=== PATIENT | female | born 1985 | race Caucasian/White ===

== ENCOUNTER 2023-11-27 01:03 | Day surgery (SDC) | payer OTHER, SELFPAY ==
[2023-11-15 10:29] VITALS: BMI 47.2
--- NOTE | 2023-11-15 10:38 | PC.NURSE ---
Report to the Outpatient Waiting Room, entrance under the green pavilion located off [facility], at time 08:00am on date 11-27-23. Planned Procedure Time: 10:00am. Time changes happen often and if your time is changed the preop area will call you the afternoon before. - You and your visitor will be asked to self-screen and do not enter if you have any COVID symptoms. - A mask is optional within the hospital at this time. Patients may have clear liquids (water, carbonated beverages, clear teas, apple juice) until 3 hours prior to surgery (07:00AM) with a maximum of 20 ounces. - No food from midnight until time of surgery Take the following medications with a SIP of water the morning of surgery: N/A DO NOT STOP ANY OF YOUR OTHER PRESCRIPTION MEDICATIONS PRIOR TO SURGERY ?EXCEPT THE FOLLOWING Medications to discontinue per physician N/A Please no make-up, nail german, hairspray, perfume, deodorant, or body powder the day of surgery. No jewelry (including any body piercings) or valuables the day of surgery, leave them at home. Please take a shower or bath the night before, or the morning of, surgery with an antibacterial soap. Wear comfortable, loose fitting clothing. - Jewelry must be removed prior to entering the operating room. Rings and piercings that are not removed may be cut off. - The hospital will not accept responsibility for valuables. - Please leave all valuables, including medications, at home the day of surgery. If you are going home after surgery, a licensed lumber stacker driver must drive you home. - NO public transportation without another adult if you receive anesthesia. - We recommend that an adult stay with you for 24 hours following discharge. - We also recommend that you do not drive, make important decision, drink alcoholic beverages, or take any drugs that were not prescribed by your health care provider for at least 24 hours after your discharge time. Follow any additional instructions given to you from your surgeon. If you or anyone in your household have experienced Covid symptoms in the past week, please notify your surgeon or the nurse liaison at the phone number below for possible testing. Telephone instructions given to PATIENT and asked if any additional questions and then verbalized understanding. Patient advised to call surgeon office or pre surgery nurse liaison [phone] if any additional questions.
--- NOTE | 2023-11-26 20:18 | PM.IMHP ---
H&P: HPI History of Present Illness Date/Time: 11/26/23 20:18 Chief Complaint: AUB and pelvic pain Narrative: Hua is a 38yo [id number], who presents for surgery due to AUB. She has a normal pap 08/2023. She reports her cycles are very irregular, heavy, painful and just miserable. She has a h/o x 3, and had a tubal with her last. She reports that she sometimes skips 1-2 months, sometimes has 2 cycles per month. She reports whenever she has one, she is going through a whole large box of tampons in 3 days because her bleeding is so heavy and fast. She has severe pain. She just feels extremely fatigued and most of the time, cannot get out of bed. She has tried pills, nuvaring, and an IUD in that past and did not like the side effects. PCOS/thyroid/hormone testing was normal. [employer] US showed an enlarged, globular uterus, concerning for adenomyosis. EMB was benign. She is tired of the pain and heavy bleeding and would like to proceed with hysterectomy. Review of Systems Constitutional: Constitutional: Denies chills, Denies fever(s) and Denies headache(s) Eyes: Eyes: Denies change in vision ENT: Denies dizziness and Denies headache(s) Cardiovascular: Cardiovascular: Denies chest pain and Denies dyspnea Respiratory: Respiratory: Denies cough and Denies dyspnea Gastrointestinal: Gastrointestinal: Denies abdominal pain and Denies change in stool character Genitourinary: Genitourinary: Reports abnormal menses, Reports menorrhagia, Reports dysmenorrhea, Reports pelvic pain, Denies vaginal discharge, Denies vaginal odor and Denies vaginal pruritus Neurologic: Denies dizziness and Denies headache(s) Psychiatric: Psychiatric: Denies anxiety and Denies depression [facility] Past Medical History Medical History (Updated 10/30/23 @ 10:55 by Ebony Zacarias MA) Anxiety History of endometrial biopsy 10/24/2023 - abnormal bleeding - pathology benign Hyperthyroidism Surgical History Surgical History Delivery by section xs 3 History of cholecystectomy History of tubal ligation Family History Family History Grandparent Diabetes mellitus Pancreatic cancer Hypertension Social History Social History Smoking status: Never smoker Second hand tobacco smoke exposure: Yes (as a child) Alcohol intake: former Alcohol use details: as a teenager Substance use: never Substance use type: does not use Do You Feel Safe in your Home?: Yes Lack of Transportation: No Lack of Food: Never True Current Housing: I Have Housing Concerned About Future Housing: No Difficulty Paying Gas/Electric Bills: No Difficulty Paying for Meds: No Currently Unemployed: No Education: High School Diploma/GED Living arrangements: with family Occupation/Education: unemployed Gender identity (if verbalized by the patient): Female Sexual Orientation (if Verbalized by the Patient): Bisexual Meds Home Medications and Allergies Home Medications Medication Instructions Recorded Confirmed Type ferrous sulfate 65 mg PO DAILY 11/15/23 11/15/23 History Allergies Allergy/AdvReac Type Severity Reaction Status Date / Time amoxicillin Allergy Severe Anaphylaxis Verified 11/15/23 10:24 Penicillins Allergy Severe Hives Verified 11/15/23 10:24 cefaclor Allergy Unknown Anaphylaxis Verified 11/15/23 10:24 [place] Allergy Severe hives Uncoded 11/15/23 10:24 GLUCOSE DRINK Allergy Mild Hives Uncoded 11/15/23 10:24 Exam Const: General: cooperative, healthy appearing, comfortable, no acute distress and obese Orientation/consciousness: patient oriented x3 Resp: Effort & Inspection: normal respiratory effort Cardio: Rate: regular rate GI: Inspection: normal to inspection GI Palp: No abdominal tenderness and Yes Soft to palpation : Other: deferred to OR Skin:
[2023-11-27] VITALS (10 sets, daily range): BP systolic 93–131; BP diastolic 45–84; PULSE 83–106; RESP 16–26; TEMP 36.3–37.2; O2SAT 94–100; BMI 47.0
--- NOTE | 2023-11-27 06:42 | WPDHPUPDATE1 ---
History and Physical Update Update Date/Time: 11/27/23 06:42 History and Physical has been reviewed, including an updated exam of the patient. There are NO changes in the patient's condition. Risks, benefits, and alternatives have been discussed and questions answered. Patient agrees to proceed with robotic assisted total laparoscopic hysterectomy with bilateral salpingectomy and cystoscopy.
[2023-11-27] MEDS: ACETAMINOPHEN 500 MG TABLET 1000 MG PO ×3 (06:54→17:11)
[2023-11-27] MEDS: KETOROLAC 15 MG/ML VIAL (*BKC) IV PUSH (06:54)
[2023-11-27] MEDS: LACTATED RINGERS 1,000 ML 30 ML IV CONT ×2 (07:00→09:58)
--- NOTE | 2023-11-27 07:09 | WPDANESEPPF ---
Anes - Initial Pre Proc Eval Procedure: Operation Date: 11/27/23 07:30 Proposed Procedures p Robotic Assisted Total Laparoscopic Hysterectomy with Bilateral Salpingectomy - Gita Arroyo MD Date/Time: 11/27/23 07:09 Surgeon: Gita Arroyo MD Pre Op Diagnosis: abnormal uterine bleeding Patient Data Age: 38 Gender: F Height: 1.63 m Weight: 124.2 kg Allergies Allergy/AdvReac Type Severity Reaction Status Date / Time amoxicillin Allergy Severe Anaphylaxis Verified 11/15/23 10:24 Penicillins Allergy Severe Hives Verified 11/15/23 10:24 cefaclor Allergy Unknown Anaphylaxis Verified 11/15/23 10:24 [place] Allergy Severe hives Uncoded 11/15/23 10:24 GLUCOSE DRINK Allergy Mild Hives Uncoded 11/15/23 10:24 Home Medications Medication Instructions Recorded Confirmed Type ferrous sulfate 65 mg PO DAILY 11/15/23 11/15/23 History Patient hx anesthesia problems: none Family hx anesthesia problems: none Results Review: All pre-operative results and documents have been reviewed as part of the pre-operative evaluation. [facility] Past Medical History Medical History Anxiety History of endometrial biopsy 10/24/2023 - abnormal bleeding - pathology benign Hyperthyroidism Surgical History Surgical History Delivery by section xs 3 History of cholecystectomy History of tubal ligation Family History Family History Grandparent Diabetes mellitus Pancreatic cancer Hypertension Social History Social History Smoking status: Never smoker Second hand tobacco smoke exposure: Yes (as a child) Alcohol intake: former Alcohol use details: as a teenager Substance use: never Substance use type: does not use Do You Feel Safe in your Home?: Yes Lack of Transportation: No Lack of Food: Never True Current Housing: I Have Housing Concerned About Future Housing: No Difficulty Paying Gas/Electric Bills: No Difficulty Paying for Meds: No Currently Unemployed: No Education: High School Diploma/GED Living arrangements: with family Occupation/Education: unemployed Gender identity (if verbalized by the patient): Female Sexual Orientation (if Verbalized by the Patient): Bisexual Anes - Eval Final PreProcedure Day of Procedure 11/27/23 07:09 Patient weight: morbidly obese Heart: regular rate and rhythm Lungs: clear to auscultation Airway: Mallampati scale class II Neurological: alert and oriented Last oral intake: >/= 8 hours ASA classification: III Emergent: no Anesthetic plan: proceed Anesthesia type and monitoring: general and standard monitoring Results Review: All pre-operative results and documents have been reviewed as part of the pre-operative evaluation. Informed Consent: The patient's anesthetic plan and its attendant risks and benefits were discussed with the patient/family/POA. Questions were solicited and answers provided to the satisfaction of the patient/family/POA.
[2023-11-27] MEDS: GENTAMICIN SULFATE INJ 415 MG in DEXTROSE 5% 100 ML 110.38 MG IVPB (07:51)
[2023-11-27] MEDS: CLINDAMYCIN 900 MG/D5W 50 ML 900 MG/50 ML PIGGYBACK 50 MG IVPB (07:51)
[2023-11-27] MEDS: LIDO 1%/EPINEPHRINE 1:100,000 20 ML VIAL 30 ML INFILTRATE (08:26)
--- NOTE | 2023-11-27 09:52 | W.PM.PROC2 ---
Procedure Note - Detailed Date of Procedure 11/27/23 Pre-op Diagnosis abnormal uterine bleeding pelvic pain Post-op Diagnosis Same Procedure Performed RObotic assisted total laparoscopic hysterectomy, lysis of adhesions, bilateral salpingectomy, and cystoscopy Surgeon Gita Arroyo MD [employer] Yusra Anesthesia General and Local (20cc of 1% lido w/ epi) Findings Uterus sounded to 12cm, cervix 3cm. Extensive omental adhesions noted to the mid abdomen, which were slowly and carefully taken down. History of tubal ligation. Left fallopian tube was scarred to the descending colon as well as to the pelvic side wall (colon adhesions to the left pelvic side wall which were also taken down). 2-3cm right simple cyst, ruptured intra-op when performing right salpingectomy. Normal right tube. Normal left ovary. Normal bladder without masses or defects; bilateral ureteral efflux noted. Surgicel powder used at end of case over raw edges. Uterus/cervix/tubes: 139g Description of Procedure Hua was taken to the operating room where she was placed under general anesthesia without issues. She received 900mg of clindamycin and 5mg/kg of gentamicin. She was then prepped and draped in the usual sterile fashion in the dorsal lithotomy position with her legs in low Miles stirrups, her arms tucked at her side, with a strap over her chest. A time-out was performed. My attention was turned down below where a parrish catheter was placed. A bivalve speculum was placed within the vagina. The cervix was easily identified and the anterior lip of the cervix was grasped with single-tooth tenaculum. The uterus was then sounded to 12cm. The cervix was serially dilated to allow for the ANDREW uterine manipulator; which was placed w/o issue (10cm tip with 3cm cervical ring). My gloves were changed and attention was then turned to the abdomen. A 5 mm trocar was placed under direct visualization at Orta's point without issue. Once intra-abdominal placement was confirmed, the abdomen was insufflated with carbon dioxide gas. An abdominal survey was performed and the above findings were noted. Two additional ports were placed on the right and left side and the camera port was placed suprapubically under direct visualization without issues. The 5mm port was switched out for the accessory port under direct visualization. The patient was then placed in deep Trendelenburg, with the legs slightly lowered. The robot was then docked. The instruments were placed intra-abdominally under direct visualization. I then un-scrubbed and went to the robotic console. There was a large amount of omental adhesions to the mid abdomen. These adhesions were slowly and carefully take down using the bipolar and monopolar scissors. The adhesions were slowly and carefully taken down to avoid creating any defects in the omentum and coagulating all bleeders. The lysis of adhesions occurred for 30 minutes. At the end, good hemostasis of the omentum was noted. I then started my hysterectomy on the right side. The ureter was easily identified transperitoneally and well out of the surgical field. The round ligament was clamped, coagulated, and transected. The uterine ovarian artery was then serially clamped, coagulated, and transected with good hemostasis. The broad ligament was then dissected anteriorly and posteriorly skeletonizing the uterine artery. The bladder flap was then developed on the right side and carried around the left, anteriorly. The uterine artery was then serially clamped and coagulated. Once the vessel was adequately coagulated, it was then transected with good hemostasis. The same procedure was then performed on the left side without complications. The uterus was noted to be devascularized. The bladder flap was verified out of the surgical field and the colpotomy was started anteriorly and continued in a clockwise fashion until the uterus was released. The uterus was removed from the abdomen via t
[2023-11-27] MEDS: fentaNYL CITRATE INJ (*CRX) 100 MCG/2 ML VIAL 25 MCG IV PUSH ×2 (10:20→10:40)
--- NOTE | 2023-11-27 11:05 | PC.NURSE ---
This patient, Hua Morales, was received from PACU on 11/27/23 at 1105. Patient/family oriented to unit policies and routines
[2023-11-27] MEDS: DEXTROSE 5%/LACTATED RINGERS 1,000 ML 125 ML IV CONT (11:26)
[2023-11-27] MEDS: KETOROLAC 30 MG/ML VIAL (*BKC) IV PUSH ×2 (11:32→17:12)
[2023-11-27] MEDS: SIMETHICONE 80 MG TAB.CHEW PO ×2 (11:33→17:11)
[2023-11-27] MEDS: DOCUSATE SODIUM 100 MG CAPSULE PO (17:11)
[2023-11-28] MEDS: ACETAMINOPHEN 500 MG TABLET 1000 MG PO ×2 (00:58→07:44)
[2023-11-28] MEDS: KETOROLAC 30 MG/ML VIAL (*BKC) IV PUSH (00:58)
[2023-11-28 04:05] VITALS: BP 116/80; PULSE 102; RESP 18; TEMP 36.4; O2SAT 99
[2023-11-28 05:20] LABS: Basophils Percent Auto 0.2 % (0.2-1.2); Eosinophils Percent Auto 0.4 % (0-4.4); Hematocrit 34.8 % (37.0-47.0); Hemoglobin 11.3 g/dL (12.0-15.0); Immature Granulocyte Absolute 0.08 K/mm3 (0.00-0.031); Immature Granulocyte Percent A 0.8 % (0-0.5); Lymphocytes Absolute Auto 0.74 K/mm3 (0.9-3.2); Lymphocytes Percent Auto 7.3 % (18.3-44.2); Mean Corpuscular HGB Conc 32.5 g/dl (32-36); Mean Corpuscular Hemoglobin 28.9 pg (26-34); Mean Platelet Volume 11.7 fl (7.4-10.4); Monocytes Absolute Auto 0.7 K/mm3 (0.1-0.6); Neutrophils Absolute Auto 8.5 K/mm3 (1.3-6.7); Neutrophils Percent Auto 84.3 % (45.5-73.1); Platelet Count Result 207 k/mm3 (150-375); Red Blood Count 3.91 M/mm3 (4.2-5.4); Red Cell Distribution Width 13.3 % (11.5-14.5); White Blood Count 10.1 K/mm3 (4.5-10.0)
[2023-11-28 05:31] LABS: Anion Gap 7 mmol/L (4-12); Blood Urea Nitrogen 13 mg/dL (7-17); Calcium 8.8 mg/dL (8.4-10.2); Carbon Dioxide 22 mmol/L (22-30); Chloride 107 mmol/L (98-107); Estimated CRCL calculation 142 ml/min; Estimated Glomerular Filt Rate > 60; Glucose 107 mg/dL (65-110); Potassium 3.9 mmol/L (3.4-5.0); Sodium 136 mmol/L (137-145)
--- NOTE | 2023-11-28 06:40 | PM.GYNPNOP ---
SPORTS ADMINISTRATOR - A/P Assessment and plan (1) S/P laparoscopic hysterectomy: Code(s): Z90.710 - Acquired absence of both cervix and uterus Status: Acute Postoperative Procedures: Procedures Operation Date: 11/27/23 07:30 Actual Procedure Side Surgeon p Robotic Assisted Total Laparoscopic Hysterectomy with Bilateral Salpingectomy, Lysis of Adhesions, Cystoscopy Gita Arroyo MD Postoperative day: 1 Postoperative status: doing well Postoperative plan: routine post-op care and discharge Time Spent With Patient Time: Total time spent is greater than 50% in coordination of care (as documented) at patient's floor/unit and/or counseling patient: Time with patient: less than 15 minutes SPORTS ADMINISTRATOR- PN:Subj Post-Op Subjective Date/time seen: 11/28/23 06:40 Interval history: POD#1 Hua reports doing well today. No issues overnight. Her pain is controlled with PO meds. She has tolerated regular diet. She denies any vaginal bleeding. She has voided. She has passed flatus. She has ambulated and denies any symptoms of anemia. Review of Systems Review of Systems: All systems reviewed & are unremarkable except as noted in HPI and below (HPI) Constitutional: Constitutional: Denies chills, Denies fever(s) and Denies headache(s) Eyes: Eyes: Denies change in vision ENT: Denies dizziness and Denies headache(s) Cardiovascular: Cardiovascular: Denies chest pain and Denies rapid heart rate Respiratory: Respiratory: Denies cough Genitourinary: Genitourinary: Denies abnormal vaginal bleeding Neurologic: Denies dizziness and Denies headache(s) Exam Const: General: cooperative, healthy appearing, comfortable, no acute distress and obese Orientation/consciousness: patient oriented x3 Resp: Effort & Inspection: normal respiratory effort Auscultation: clear to auscultation bilaterally Cardio: Rate: regular rate GI: Inspection: normal to inspection and incision ( LSC incisions c/d/i) GI Palp: Yes abdominal tenderness (appropriate) and Yes Soft to palpation Auscultation: normal bowel sounds : Other: normal bleeding on pad Skin: General skin exam: normal color Neuro: General: patient oriented x3 Psych: Appearance: grossly normal Affect: normal affect Attitude: cooperative SPORTS ADMINISTRATOR - PN: Obj Data Vital Signs Vital Signs: Vital Signs - 24 hr 11/27/23 09:58 11/27/23 10:10 11/27/23 10:25 Temperature 97.3 F L Pulse Rate 94 94 88 Respiratory Rate 26 H 20 17 Blood Pressure 95/45 L 98/57 L 93/55 L Pulse Oximetry 100 96 96 Oxygen Delivery Simple Face Mask Room Air Room Air Oxygen Flow Rate 8 11/27/23 10:40 11/27/23 10:54 11/27/23 11:10 Temperature 97.4 F L Pulse Rate 88 88 86 Respiratory Rate 16 17 16 Blood Pressure 100/60 101/53 L 116/64 Pulse Oximetry 94 96 97 Oxygen Delivery Room Air Oxygen Flow Rate 11/27/23 15:45 11/27/23 19:00 11/27/23 20:15 Temperature 97.7 F 99.0 F 98.8 F Pulse Rate 106 H 103 H Respiratory Rate 16 18 Blood Pressure 131/84 128/83 Pulse Oximetry 100 96 Oxygen Delivery Oxygen Flow Rate 11/28/23 04:05 Temperature 97.5 F L Pulse Rate 102 H Respiratory Rate 18 Blood Pressure 116/80 Pulse Oximetry 99 Oxygen Delivery Oxygen Flow Rate Intake/Output Intake/Output: Intake & Output 11/25/23 11/26/23 11/27/23 11/28/23 23:59 23:59 23:59 23:59 Intake Total 3380 Output Total 1075 Balance 2305 Meds/Results Medications: Active Medications Generic Name Dose Route Start Last Admin Trade Name Freq PRN Reason Stop Dose Admin Acetaminophen 1,000 mg 11/27/23 13:00 11/28/23 00:58 Acetaminophen 500 Mg Tablet PO 1,000 mg Q6H MATTY Administration Diphenhydramine HCl 25 mg 11/27/23 10:56 Diphenhydramine Hcl Cap 25 Mg Capsule PO Q6H PRN Itching Docusate Sodium 100 mg 11/27/23 17:00 11/27/23 17:11 Docusate Sodium 100 Mg Capsule PO 100 mg BID MATTY Administration Hydromorphone HCl 0.5 mg
[2023-11-28] MEDS: DOCUSATE SODIUM 100 MG CAPSULE PO (07:45)
[2023-11-28] MEDS: SIMETHICONE 80 MG TAB.CHEW PO (07:45)
[2023-11-28] MEDS: IBUPROFEN 600 MG TABLET PO (07:45)
[2023-11-28 08:05] VITALS: BP 120/81; PULSE 92; RESP 16; TEMP 36.6; O2SAT 99
--- NOTE | 2023-11-28 10:58 | P.PNAN_ITS ---
Anes - Prog Note Post-Op Date/Time: 11/28/23 10:58 Cardiovascular status: normal Respiratory status: normal Airway patency: baseline Mental status: baseline Post-Op hydration status: normal Vital Signs: Last Vital Signs Temp 36.6 C 11/28/23 08:05 Pulse 92 11/28/23 08:05 Resp 16 11/28/23 08:05 BP 120/81 11/28/23 08:05 Pulse Ox 99 11/28/23 08:05 O2 Del Method Room Air 11/27/23 10:40 O2 Flow Rate 8 11/27/23 09:58 Pain Score (VAS): 0 I/O: Intake & Output 11/27/23 11/28/23 11/28/23 23:59 07:59 15:59 Intake Total 690 240 Balance 690 240 Laboratory Tests 11/28/23 04:13 11/28/23 04:13 11/28/23 04:13 WBC 10.1 H RBC 3.91 L Hgb 11.3 L Hct 34.8 L MCV 89.0 MCH 28.9 MCHC 32.5 RDW 13.3 Plt Count 207 MPV 11.7 H Immature Gran % (Auto) 0.8 H Neut % (Auto) 84.3 H Lymph % (Auto) 7.3 L Jackson % (Auto) 7.0 Eos % (Auto) 0.4 Baso % (Auto) 0.2 Lymph # (Auto) 0.74 L Jackson # (Auto) 0.7 H Eos # (Auto) 0.0 Baso # (Auto) 0.0 Abs Immat Gran (auto) 0.08 H Absolute Neuts (auto) 8.5 H Absolute Nucleated RBC 0.000 Nucleated RBC % 0.0 Sodium 136 L Potassium 3.9 Chloride 107 Carbon Dioxide 22 Anion Gap 7 BUN 13 Creatinine 0.60 L Estim Creat Clear Calc 142 Estimated GFR > 60 Glucose 107 Calcium 8.8 Post-procedural complaints: none Patient Feedback: Patient satisfied with anesthetic care.
== END 2023-11-28 09:35 | disposition home or self-care (01) ==
LOC: ANHSURGERY 05:43 → ANHOB2 11:04
PROVIDERS: Visit Provider Obstetrics & Gynecology
PROC: (CPT 58571; principal; 2023-11-27 07:30)
DX: N92.0 Excessive and frequent menstruation with regular cycle (principal); N73.6 Female pelvic peritoneal adhesions (postinfective); N83.201 Unspecified ovarian cyst, right side; N80.03 Adenomyosis of the uterus; D25.9 Leiomyoma of uterus, unspecified; E66.01 Morbid (severe) obesity due to excess calories; Z68.42 Body mass index [BMI] 45.0-49.9, adult
CPT/HCPCS: 58571; S2900; 36415; 80048; 85025; 86850; 86900; 86901; 88307; 99199; A9270; J1100; J1170; J1580; J1885; J2250; J2405; J2704; J3010; J7030; J7120; J7121